=== PATIENT | female | born 1985 | race Caucasian/White ===

== ENCOUNTER 2017-06-24 18:10 | Emergency (ER) | payer MEDICAID, OTHER ==
[2017-06-24] MEDS ORDERED: CEFTRIAXONE 1 GM/50 ML (PMX) 50 ML IVPB (19:00)
[2017-06-24] MEDS: SOD CHLORIDE 0.9% 1,000 ML IV (19:17)
[2017-06-24] MEDS: DEXAMETHASONE 10 MG/ML 1 ML INJ IV (19:17)
[2017-06-24] MEDS: KETOROLAC 30 MG INJ IV (19:18)
[2017-06-24 19:54] LABS: MONOTEST Positive (NEG)
== END 2017-06-24 20:30 | disposition home or self-care (01) ==
LOC: E/R 18:10 → FTE 20:30
DX: J02.9 Acute pharyngitis, unspecified (principal); B27.90 Infectious mononucleosis, unspecified without complication
CPT/HCPCS: 36415; 81025; 86308; 87070; 87880; 96374; 96375; 99284-25